=== PATIENT | female | born 1995 | race African-American/Black ===

== ENCOUNTER 2020-06-05 10:50 | Emergency (ER) | payer MEDICARE ==
[~2020-06-05] VITALS: Ht 157.5 cm; Wt 86.2 kg
[2020-06-05 11:15] VITALS: BP 115/65
== END 2020-06-05 11:22 | disposition home or self-care (01) ==
LOC: ER 10:57
DX: J32.9 Chronic sinusitis, unspecified (principal); R07.89 Other chest pain; R06.02 Shortness of breath; R51.9 Headache, unspecified; F41.9 Anxiety disorder, unspecified
CPT/HCPCS: 93005; 99283